=== PATIENT | male | born 1995 | race Caucasian/White ===

== ENCOUNTER 2018-01-24 20:48 | Inpatient (IN) | payer SELFPAY ==
[~2018-01-24] VITALS: Ht 184.2 cm; Wt 139.7 kg
[~2018-01-24 20:48] MED LIST: HYDR-1231 PO; METH4TAB PO; SULF1TAB35 PO
[2018-01-24] MEDS ORDERED: LIDOCAINE 1% INJ 20 ML 20 ML VIAL INJ ONE (21:30)
[2018-01-24] MEDS ORDERED: fentaNYL INJECTION 100 MCG/2 ML AMP IVP ONE ×2 (21:30→22:45)
[2018-01-24 21:41] LABS: BASOPHILS # (AUTO) 0.1 10^3/uL (0.0-0.1); BASOPHILS % (AUTO) 1 % (0-10); EOSINOPHILS # (AUTO) 0.3 10^3/uL (0.0-0.3); EOSINOPHILS % (AUTO) 3 % (0-10); HEMATOCRIT 44 % (40-54); HEMOGLOBIN 15.5 G/DL (13.3-17.7); LYMPHOCYTES # (AUTO) 2.8 X 10^3 (1.0-4.0); LYMPHOCYTES % (AUTO) 25 % (12-44); MEAN CORPUSCULAR HEMOGLOBIN 30 PG (25-34); MEAN CORPUSCULAR HGB CONC 36 G/DL (32-36); MEAN CORPUSCULAR VOLUME 85 FL (80-99); MONOCYTES # (AUTO) 1.3 X 10^3 (0.0-1.0); MONOCYTES % (AUTO) 12 % (0-12); NEUTROPHILS # (AUTO) 6.6 X 10^3 (1.8-7.8); NEUTROPHILS % (AUTO) 60 % (42-75); PLATELET COUNT 331 10^3/uL (130-400); RED BLOOD COUNT 5.12 10^6/uL (4.35-5.85); RED CELL DISTRIBUTION WIDTH 13.3 % (10.0-14.5)
--- NOTE | 2018-01-24 21:42 | ED Lower Extremity ---
General Stated Complaint: SPIDER BITE L LEG Source: patient Exam Limitations: no limitations History of Present Illness Date Seen by Provider: Jan 24, 2018 Time Seen by Provider: 21:15 Initial Comments Patient is a 22-year-old male who presents to the emergency room with complaints of a spider bite to the anterior aspect of his left evangelista. And an area of redness to the left inner ankle. He reports that this started 1 week ago today and it started out as what he thought was a mosquito bite that itched but had a black dot in the middle but became larger and more painful over the week. His left leg is swollen and has been causing him more pain with ambulation. He does report that he's been running a fever. He also reports that he was seen today at urgent care in [place], [place] and was given Bactrim reports that he accidently left it there. He also has multiple bug bites to his lower extremities bilaterally. These that I have described really only to that appeared to be infected. Onset: last week Pain/Injury Location: left leg, left ankle Method of Injury: other (insect bite) Modifying Factors: Improves With Immobilization; Worse With Movement Allergies and Home Medications Allergies Coded Allergies: No Known Drug Allergies (Unverified , 01/18/13) Home Medications Sulfamethoxazole/Trimethoprim 1 Each Tablet, 1 EACH PO BID Prescribed by: URSULA RODRIGUEZ on 01/26/18 1225 Patient Home Medication List Home Medication List Reviewed: Yes Constitutional: see HPI; No chills, No diaphoresis; fever EENTM: no symptoms reported; No ear discharge, No hearing loss Respiratory: see HPI; No cough, No dyspnea on exertion Cardiovascular: see HPI; No chest pain, No edema Gastrointestinal: see HPI; No abdominal pain, No constipation, No diarrhea Genitourinary: see HPI; No decreased output, No discharge Musculoskeletal: see HPI; No back pain, No gout Skin: see HPI, change in color, lesions, pruritus Psychiatric/Neurological: See HPI; Denies Anxiety, Denies Depressed All Other Systems Reviewed Negative Unless Noted: Yes Past Vxgzlaf-Jtashm-Lopwmp Hx Past Med/Social Hx: Reviewed Nursing Past Med/Soc Hx Patient Social History Type Used: Smokeless Tobacco Recent Foreign Travel: No Contact w/Someone Who Travel: No Recent Hopitalizations: No Immunizations Up To Date Tetanus Booster (TDap): Unknown Seasonal Allergies Seasonal Allergies: No Past Medical History Meningitis Reproductive Disorders: No Adverse Reaction/Blood Tranf: No Family Medical History Reviewed Nursing Family Hx Heart Disease, Cancer Physical Exam Vital Signs Vital Signs - First Documented 01/24/18 21:11 Temp 98.2 Pulse 116 Resp 22 B/P (MAP) 137/101 (113) Pulse Ox 98 O2 Delivery Room Air Capillary Refill : Height, Weight, BMI Height: 6', 0" Weight: 265lbs oz, 120.350341ar Method:Stated ,BMI General Appearance: WD/WN, no apparent distress HEENT: PERRL/EOMI, normal ENT inspection, TMs normal, pharynx normal Neck: non-tender, full range of motion, supple, normal inspection Cardiovascular: regular rate, rhythm, no edema, no gallop, no JVD, no murmur Respiratory: chest non-tender, lungs clear, normal breath sounds, no respiratory distress, no accessory muscle use Gastrointestinal: normal bowel sounds, non tender, soft, no organomegaly, no pulsatile mass Back: normal inspection, no CVA tenderness, no vertebral tenderness Legs: bilateral leg pain, bilateral leg soft tissue tenderness, bilateral leg swelling (the left calf is 52 cm in the left ankle is 15 cm. The right calf is 46 cm the left calf is 18 cm) Neurologic/Tendon: normal sensation, normal motor functions, normal tendon functions, responds to pain Neurologic/Psychiatric: alert, normal mood/affect, oriented x 3, abnormal cerebellar tests Skin: other (see the pictures attached. The patient has 2 large areas of cellulitis the first one to his left evangelista measures 5 x 8" and his erythematous and has a central lesion that is black and mendez in color and is draining a mendez purulent drainage. The one on his left inner ankle 2 x 2 and erythematous.) Lymphatic: no adenopathy Progress/Results/Core Measures Results/Orders Lab Results Laboratory Tests Test 01/24/18 21:32 Range/Units White Blood Count 11.0 4.3-11.0 10^3/uL Red Blood Count 5.12 4.35-5.85 10^6/uL Hemoglobin 15.5 13.3-17.7 G/DL Hematocrit 44 40-54 % Mean Corpuscular Volume 85 80-99 FL Mean Corpuscular Hemoglobin 30 25-34 PG Mean Corpuscular Hemoglobin Concent 36 32-36 G/DL Red Cell Distribution Width 13.3 10.0-14.5 % Platelet Count 331 130-400 10^3/uL Mean Platelet Volume 11.0 H 7.4-10.4 FL Neutrophils (%) (Auto) 60 42-75 % Lymphocytes (%) (Auto) 25 12-44 % Monocytes (%) (Auto) 12 0-12 % Eosinophils (%) (Auto) 3 0-10 % Basophils (%) (Auto) 1 0-10 % Neutrophils # (Auto) 6.6 1.8-7.8 X 10^3 Lymphocytes # (Auto) 2.8 1.0-4.0 X 10^3 Monocytes # (Auto) 1.3 H 0.0-1.0 X 10^3 Eosinophils # (Auto) 0.3 0.0-0.3 10^3/uL Basophils # (Auto) 0.1 0.0-0.1 10^3/uL Sodium Level 137 135-145 MMOL/L Potassium Level 4.2 3.6-5.0 MMOL/L Chloride Level 101 98-107 MMOL/L Carbon Dioxide Level 24 21-32 MMOL/L Anion Gap 12 5-14 MMOL/L Blood Urea Nitrogen 13 7-18 MG/DL Creatinine 1.01 0.60-1.30 MG/DL Estimat Glomerular Filtration Rate > 60 BUN/Creatinine Ratio 13 Glucose Level 84 70-105 MG/DL Lactic Acid Level 1.35 0.50-2.00 MMOL/L Calcium Level 9.9 8.5-10.1 MG/DL Total Bilirubin 1.7 H 0.1-1.0 MG/DL Aspartate Amino Transf (AST/SGOT) 45 H 5-34 U/L Alanine Aminotransferase (ALT/SGPT) 94 H 0-55 U/L Alkaline Phosphatase 59 40-136 U/L Total Protein 8.7 H 6.4-8.2 GM/DL Albumin 4.7 H 3.2-4.5 GM/DL Micro Results Microbiology 01/24/18 Blood Culture - Preliminary, Resulted No growth 01/24/18 Blood Culture - Preliminary, Resulted No growth 01/24/18 Gram Stain - Final, Complete 01/24/18 Wound Culture - Final, Complete Staphylococcus aureus My Orders Orders - NIKOLAY SALAZAR Fentanyl Injection (Sublimaze Injection (01/24/18 21:30) Lidocaine 1% Inj 20 Ml (Xylocaine 1% Inj (01/24/18 21:30) Cbc With Automated Diff (01/24/18 21:24) Comprehensive Metabolic Panel (01/24/18 21:24) Lactic Acid Analyzer (01/24/18 21:24) Blood Culture (01/24/18 21:24) Saline Lock/Iv-Start (01/24/18 21:24) Ceftriaxone Injection (Rocephin Injectio (01/24/18 22:30) Wound Culture (01/24/18 22:38) Fentanyl Injection (Sublimaze Injection (01/24/18 22:45) Medications Given in ED Vital Signs/I&O 01/24/18 21:11 Temp 98.2 Pulse 116 Resp 22 B/P (MAP) 137/101 (113) Pulse Ox 98 O2 Delivery Room Air Departure Communication (Admissions) Time/Spoke to Admitting Phy: 22:[address] Ye and he agrees with plans of admission at this time. There are also be a consult to surgery in the morning. Impression Primary Impression: Cellulitis Qualified Codes: L03.116 - Cellulitis of left lower limb Disposition: ADMITTED INPATIENT Condition: Stable/Unchanged Admissions Decision to Admit Reason: Admit from ER (General) Decision to Admit/Date: Jan 24, 2018 Time/Decision to Admit Time: 22:51 Departure-Patient Inst. Referrals: NO,LOCAL PHYSICIAN (PCP/Family) Primary Care Physician Scripts Sulfamethoxazole/Trimethoprim (Bactrim Ds Tablet) 1 Each Tablet 1 EACH PO BID, #10 TAB Prov: URSULA RODRIGUEZ MD 01/26/18 Images Extremities-Lower 1 - Severe, Cellulitis, Edema, Swelling, Tenderness 1 - Mild, Cellulitis, Edema, Swelling, Tenderness Progress The area in the first picture is 8 x 5" on the evangelista. In the lower inner ankle is 2 x 2" NIKOLAY SALAZAR Jan 24, 2018 21:42
[2018-01-24 22:01] LABS: ALANINE AMINOTRANSFERASE 94 U/L (0-55); ALBUMIN 4.7 GM/DL (3.2-4.5); ALKALINE PHOSPHATASE 59 U/L (40-136); BILIRUBIN,TOTAL 1.7 MG/DL (0.1-1.0); BUN/CREATININE RATIO 13; CALCIUM 9.9 MG/DL (8.5-10.1); CARBON DIOXIDE 24 MMOL/L (21-32); CHLORIDE 101 MMOL/L (98-107); CREATININE SERUM 1.01 MG/DL (0.60-1.30); GFR ESTIMATED > 60; GLUCOSE 84 MG/DL (70-105); POTASSIUM 4.2 MMOL/L (3.6-5.0); SODIUM 137 MMOL/L (135-145); TOTAL PROTEIN 8.7 GM/DL (6.4-8.2)
[2018-01-24] MEDS ORDERED: cefTRIAXone INJECTION 1,000 MG in NS (IVPB) 50 ML IV ONE (22:30)
[2018-01-24] MEDS ORDERED: fentaNYL INJECTION 100 MCG/2 ML AMP IV PRN (23:30)
[2018-01-24] MEDS ORDERED: VANCOMYCIN 1 GM/NS 250 ML IVPB IV ONE ×2 (23:30)
[2018-01-24] MEDS ORDERED: CATHETER FLUSH 10 ML SYR IV PRN (23:30)
[2018-01-25 03:45] VITALS: BP 124/62
[2018-01-25 06:16] LABS: BASOPHILS % (AUTO) 0 % (0-10); EOSINOPHILS # (AUTO) 0.3 10^3/uL (0.0-0.3); EOSINOPHILS % (AUTO) 3 % (0-10); HEMATOCRIT 41 % (40-54); HEMOGLOBIN 14.1 G/DL (13.3-17.7); LYMPHOCYTES # (AUTO) 2.4 X 10^3 (1.0-4.0); LYMPHOCYTES % (AUTO) 25 % (12-44); MEAN CORPUSCULAR HEMOGLOBIN 30 PG (25-34); MEAN CORPUSCULAR HGB CONC 35 G/DL (32-36); MEAN CORPUSCULAR VOLUME 86 FL (80-99); MONOCYTES # (AUTO) 1.1 X 10^3 (0.0-1.0); MONOCYTES % (AUTO) 12 % (0-12); NEUTROPHILS # (AUTO) 5.8 X 10^3 (1.8-7.8); NEUTROPHILS % (AUTO) 60 % (42-75); PLATELET COUNT 282 10^3/uL (130-400); RED BLOOD COUNT 4.73 10^6/uL (4.35-5.85); RED CELL DISTRIBUTION WIDTH 13.3 % (10.0-14.5); WHITE BLOOD COUNT 9.6 10^3/uL (4.3-11.0)
[2018-01-25] MEDS: CATHETER FLUSH 10 ML SYR IV SCH ×3 (06:23→21:09)
[2018-01-25 06:30] LABS: ALANINE AMINOTRANSFERASE 73 U/L (0-55); ALBUMIN 3.8 GM/DL (3.2-4.5); ALKALINE PHOSPHATASE 51 U/L (40-136); BILIRUBIN,TOTAL 1.6 MG/DL (0.1-1.0); BUN/CREATININE RATIO 17; CALCIUM 9.2 MG/DL (8.5-10.1); CARBON DIOXIDE 23 MMOL/L (21-32); CHLORIDE 106 MMOL/L (98-107); CREATININE SERUM 0.83 MG/DL (0.60-1.30); GFR ESTIMATED > 60; GLUCOSE 106 MG/DL (70-105); POTASSIUM 3.8 MMOL/L (3.6-5.0); SODIUM 137 MMOL/L (135-145); TOTAL PROTEIN 6.6 GM/DL (6.4-8.2)
[2018-01-25 08:00] VITALS: BP 127/65
[2018-01-25] MEDS: VANCOMYCIN 1,750 MG/NS 500 ML IVPB IV SCH ×6 (08:41→23:31)
--- NOTE | 2018-01-25 10:46 | History & Physical-Hospitalist ---
History of Present Illness HPI/Chief Complaint Pt is a 22yoCM who no known past medical history who presented to the ER with a CC of leg pain and swelling. He believes he was bitten by a spider on 01/17 though he did not see the spider. He was seen by a a physician at an urgent care in [place], [place] yesterday and was prescribed an antibiotic. He took one pill but did not remember to take the prescription with him when he left [place]. Last night he developed a fever and his pain worsened so that he could not walk on it prompting him to seek evaluation in the ER where he was found to have a large erythematous area with a central wound on his left lower extremity. Source: patient Date Seen 01/25/18 Time Seen by Provider: 10:46 Attending Physician Dwayne Ye MD PCP No,Local Physician Referring Physician Date of Admission Jan 24, 2018 at 10:45 pm Home Medications & Allergies Home Medications Reviewed patient Home Medication Reconciliation performed by pharmacy medication reconciliations teletype technician and/or nursing. Patients Allergies have been reviewed. Allergies Allergies Coded Allergies No Known Drug Allergies (Unverified01/18/13) Past Yirvnbb-Cgkeno-Zkrsaw Hx Past Med/Social Hx: Reviewed Nursing Past Med/Soc Hx Patient Social History Alcohol Use: Occasionally Uses Number of Drinks Today: 0 Alcohol Beverage of Choice: Beer Recreational Drug Use: No Smoking Status: Former Smoker Type Used: Smokeless Tobacco 2nd Hand Smoke Exposure: No Physical Abuse Screen: No Sexual Abuse: No Recent Foreign Travel: No Contact w/other who traveled: No Recent Hopitalizations: No Recent Infectious Disease Expo: No Immunizations Up To Date Tetanus Booster (TDap): Unknown Pediatric: Yes Seasonal Allergies Seasonal Allergies: No Past Medical History Neurological: Meningitis Reproductive: No History of Blood Disorders: No Adverse Reaction to Blood [place]: No Family History Reviewed Nursing Family Hx Patient reports no known family medical history. Heart Disease, Cancer Review of Systems Constitutional: No chills; fever EENTM: No blurred vision, No double vision, No nose congestion, No throat pain Respiratory: No cough, No dyspnea on exertion, No short of breath Cardiovascular: No chest pain, No edema, No palpitations Gastrointestinal: No abdominal pain, No constipation, No diarrhea, No nausea, No vomiting Genitourinary: No dysuria, No frequency Musculoskeletal: see HPI; No joint pain, No muscle pain Skin: No lesions, No rash Psychiatric/Neurological: Denies Headache, Denies Numbness, Denies Tingling Physical Exam Physical Exam Vital Signs Vital Signs - First Documented 01/24/18 21:11 Temp 98.2 Pulse 116 Resp 22 B/P (MAP) 137/101 (113) Pulse Ox 98 O2 Delivery Room Air Capillary Refill : Less Than 3 Seconds Height, Weight, BMI Height: 6'0.50" Weight: 308lbs.0.0oz.139.821323gm; 41.2 BMI Method:Stated General Appearance: No Apparent Distress, WD/WN HEENT: PERRL/EOMI, Moist Mucous Membranes Neck: Non Tender, Supple Respiratory: Lungs Clear, No Respiratory Distress Cardiovascular: Regular Rate, Rhythm, No Murmur Gastrointestinal: Normal Bowel Sounds, Non Tender, Soft Extremity: Normal Capillary Refill, No Calf Tenderness, Other (left leg with area of erythema and central wound on anterior aspect of evangelista, small erythematous area on posterior aspect of ankle) Neurologic/Psychiatric: Alert, Oriented x3, Normal Mood/Affect Skin: Normal Color, Warm/Dry Results Results/Procedures Labs Laboratory Tests 01/24/18 21:32 01/25/18 05:06 Patient resulted labs reviewed. Assessment/Plan Admission Diagnosis Cellulitis Admission Status: Inpatient Order (span 2 midnights) Reason for Inpatient Admission: failed outpatient abx Diagnosis/Problems Diagnosis/Problems (1) Cellulitis Status: Acute Assessment & Plan: Continue on abx surgery consulted, appreciate recs Await cultures Qualifiers: Site of cellulitis: extremity Site of cellulitis of extremity: lower extremity Laterality: left Qualified Codes: L03.116 - Cellulitis of left lower limb Clinical Quality Measures DVT/VTE Risk/Contraindication: Risk Factor Score Per Nursin RFS Level Per Nursing on Admit: 2=Moderate URSULA RODRIGUEZ MD Jan 25, 2018 10:46
[2018-01-25] MEDS: cefTRIAXone 1 GM/NS 50 ML IVPB IV SCH ×4 (11:35→21:05)
[2018-01-25 11:56] VITALS: BP 129/74
[2018-01-25 15:35] VITALS: BP 124/60
[2018-01-25 19:50] VITALS: BP 116/75
--- NOTE | 2018-01-25 23:20 | Consultation ---
History of Present Illness History of Present Illness Patient Consulted On(lor/time) 01/25/18 23:11 Date Seen by Provider: Jan 25, 2018 Time Seen by Provider: 08:26 History of Present Illness Consult requested by Dr. Calix for cellulitis left lower extremity. Patient is a 22 year old male who has a cellulitis to left lower extremity. It started as two small dark hernadez and states that is continue to worsen. He began having increasing pain and was seen at an urgent care but only took one antibiotic and then had continue worsening so went to emergency dept for further evaluation. He has pain, swelling in the left lower extremity. Pain worsens when touched. It did have a small amount drainage but none currently. Currently denies n/v fever sweats chills shortness of breath or chest pain. Allergies and Home Medications Allergies Coded Allergies: No Known Drug Allergies (Unverified , 01/18/13) Home Medications No Active Prescriptions or Reported Meds Patient Home Medication List Home Medication List Reviewed: Yes Past Whnfolr-Jcdjmt-Sskjym Hx Patient Social History Alcohol Use: Occasionally Uses Number of Drinks Today: 0 Recreational Drug Use: No Smoking Status: Former Smoker Type Used: Smokeless Tobacco 2nd Hand Smoke Exposure: No Recent Foreign Travel: No Contact w/Someone Who Travel: No Recent Infectious Disease Expo: No Recent Hopitalizations: No Physical Abuse Screen: No Sexual Abuse: No Immunizations Up To Date Tetanus Booster (TDap): Unknown PED Vaccines UTD: Yes Seasonal Allergies Seasonal Allergies: No Surgeries History of Surgeries: No Respiratory History of Respiratory Disorde: No Cardiovascular History of Cardiac Disorders: No Neurological History of Neurological Disord: No Neurological Disorders: Meningitis Reproductive System Hx Reproductive Disorders: No Genitourinary History of Genitourinary Disor: No Gastrointestinal History of Gastrointestinal Di: No Musculoskeletal History of Musculoskeletal Dis: No Endocrine History of Endocrine Disorders: No HEENT History of HEENT Disorders: No Cancer History of Cancer: No Psychosocial History of Psychiatric Problem: No Integumentary History of Skin or Integumenta: No Blood Transfusions History of Blood Disorders: No Adverse Reaction to a Blood Tr: No Family Medical History Significant Family History: Heart Disease, Cancer Family Medial History: Patient reports no known family medical history. Review of Systems-General Constitutional: no symptoms reported EENTM: no symptoms reported Respiratory: no symptoms reported Cardiovascular: no symptoms reported Gastrointestinal: no symptoms reported Genitourinary: no symptoms reported Musculoskeletal: see HPI Skin: see HPI Psychiatric/Neurological: No Symptoms Reported Physical Exam-General Problems Physical Exam Vital Signs Vital Signs - First Documented 01/24/18 21:11 Temp 98.2 Pulse 116 Resp 22 B/P (MAP) 137/101 (113) Pulse Ox 98 O2 Delivery Room Air Capillary Refill : Less Than 3 Seconds General Appearance: WD/WN, no apparent distress HEENT: PERRL/EOMI, normal ENT inspection Neck: supple Respiratory: no respiratory distress, no accessory muscle use Cardiovascular: regular rate, rhythm Gastrointestinal: non tender, soft Rectal: deferred Back: normal inspection Extremities: other (left lower extremity cellulitis with a 3x1 cm area raised purulent/necrotic central portion) Neurologic/Psychiatric: alert, normal mood/affect, oriented x 3 Skin: warm/dry (eerythematous changes left lower extremity with changes noted above) Lymphatic: no adenopathy Data Review Labs Laboratory Tests 01/25/18 05:06: White Blood Count 9.6, Red Blood Count 4.73, Hemoglobin 14.1, Hematocrit 41, Mean Corpuscular Volume 86, Mean Corpuscular Hemoglobin 30, Mean Corpuscular Hemoglobin Concent 35, Red Cell Distribution Width 13.3, Platelet Count 282, Mean Platelet Volume 11.0H, Neutrophils (%) (Auto) 60, Lymphocytes (%) (Auto) 25 , Monocytes (%) (Auto) 12, Eosinophils (%) (Auto) 3, Basophils (%) (Auto) 0, Neutrophils # (Auto) 5.8, Lymphocytes # (Auto) 2.4, Monocytes # (Auto) 1.1H, Eosinophils # (Auto) 0.3, Basophils # (Auto) 0.0, Sodium Level 137, Potassium Level 3.8, Chloride Level 106, Carbon Dioxide Level 23, Anion Gap 8, Blood Urea Nitrogen 14, Creatinine 0.83, Estimat Glomerular Filtration Rate > 60, BUN/ Creatinine Ratio 17, Glucose Level 106H, Calcium Level 9.2, Total Bilirubin 1.6H , Aspartate Amino Transf (AST/SGOT) 32, Alanine Aminotransferase (ALT/SGPT) 73H , Alkaline Phosphatase 51, Total Protein 6.6, Albumin 3.8 Microbiology 01/24/18 Blood Culture - Preliminary, Resulted No growth 01/24/18 Gram Stain - Final, Resulted 01/24/18 Wound Culture - Preliminary, Resulted Staphylococcus species Assessment/Plan Assessment/Plan Assessment/Plan cellulitis of left lower extremity possibly secondary to spider bite, there is some central necrotic tissue with purulent material discussed patient need to debride the tissue and continue medical management would consider adding dapsone may need further debridement continue to monitor closely Procedure: patient was prepped in sterile fashion using sharp 11 blade scalpel the purulent necrotic tissue was debrided sharply measuring 3x1cm. Partial thickness of skin removed and culture obtained. Area was washed and dried and sterile bandage applied. Clinical Quality Measures DVT/VTE Risk/Contraindication: Risk Factor Score Per Nursin RFS Level Per Nursing on Admit: 2=Moderate AGUILAR JONES DO Jan 25, 2018 23:20
[2018-01-26] VITALS: BP 127/61
[2018-01-26 04:06] VITALS: BP 107/55
[2018-01-26] MEDS ORDERED: TROUGH ORDER-PHARMACY XX ONE (06:00)
[2018-01-26] MEDS: CATHETER FLUSH 10 ML SYR IV SCH ×2 (06:56→14:23)
[2018-01-26] MEDS: VANCOMYCIN 1,750 MG/NS 500 ML IVPB IV SCH ×2 (06:56)
[2018-01-26 08:00] VITALS: BP 118/75
[2018-01-26] MEDS: cefTRIAXone 1 GM/NS 50 ML IVPB IV SCH ×2 (09:07)
--- NOTE | 2018-01-26 11:31 | Discharge Summary-Hospitalist ---
Diagnosis/Chief Complaint Date of Admission Jan 24, 2018 at 10:45 pm Date of Discharge Discharge Date: Jan 26, 2018 Admission Diagnosis Cellulitis Discharge Diagnosis (1) Cellulitis Status: Acute Assessment & Plan: On Vanc and Rocephin surgery consulted, appreciate recs Cultures growing staph- will complete antibiotics as an outpatient Discharge Summary Procedures/Consulations Gen Surgery- Dr Haley Discharge Physical Exam Allergies: Coded Allergies: No Known Drug Allergies (Unverified , 01/18/13) Vitals & I&Os Vital Signs Date Time Temp Pulse Resp B/P (MAP) Pulse Ox O2 Delivery O2 Flow Rate FiO2 01/26/18 16:30 01/26/18 08:00 97.6 79 18 98 Room Air General Appearance: Alert, Oriented X3 Hospital Course Pt is a 22yoCM who presented to the ER due to leg swelling and pain and was found to have cellulitis. He was admitted for IV abx as he had failed outpatient abx treatment. He underwent bedside debridement with Dr Haley and his symptoms improved. Cultures revealed MSSA and he was discharge home on Bactrim per sensitivities. He was discharged home in stable condition. I advised him to establish care with a PCP to follow up this hospital stay. Labs (last 24 hrs) Microbiology 01/24/18 Blood Culture - Preliminary, Resulted No growth 01/25/18 Gram Stain - Final, Resulted 01/25/18 Wound Culture - Preliminary, Resulted Staphylococcus aureus Patient resulted labs reviewed. Pending Labs Discussion & Recommendations Discharge Planning: <30 minutes discharge planning Discharge Home Medications: Active Scripts Active Bactrim Ds Tablet (Sulfamethoxazole/Trimethoprim) 1 Each Tablet 1 Each PO BID Instructions to patient/family Please see electronic discharge instructions given to patient. Clinical Quality Measures DVT/VTE Risk/Contraindication: Risk Factor Score Per Nursin RFS Level Per Nursing on Admit: 2=Moderate Problem Qualifiers (1) Cellulitis: Site of cellulitis: extremity Site of cellulitis of extremity: lower extremity Laterality: left Qualified Codes: L03.116 - Cellulitis of left lower limb URSULA RODRIGUZE MD Jan 26, 2018 11:31
[2018-01-26] MEDS ORDERED: SULF1TAB35 PO (12:25)
--- NOTE | 2018-01-26 12:27 | Discharge Inst-Simple/Standard ---
Discharge Inst-Standard Discharge Medications New, Converted or Re-Newed RX: Transmitted to Pharmacy Patient Instructions/Follow Up Plan of Care/Instructions/FU: Please continue to take your medications as written. Please follow up with [facility] to follow up this hospital stay and establish care. Activity as Tolerated: Yes Discharge Diet: No Restrictions Return to The Hospital For: Fever, worsening pain or redness, if you feel you are getting worse. URSULA RODRIGUEZ MD Jan 26, 2018 12:27
[2018-01-26] MEDS ORDERED: VANCOMYCIN 1250 MG/NS 250 ML IVPB IV SCH ×2 (14:00)
--- NOTE | 2018-01-26 15:53 | Progress Note ---
Subjective Date Seen by Provider: Jan 26, 2018 Time Seen by Provider: 08:32 Subjective/Events-last exam patient feeling better. less pain. redness decreasing and swelling down. Denies n/v fever sweats chills shortness of breath or chest pain. Focused Exam Lactate Level 01/24/18 21:32: Lactic Acid Level 1.35 Objective Exam Vital Signs Date Time Temp Pulse Resp B/P (MAP) Pulse Ox O2 Delivery O2 Flow Rate FiO2 01/26/18 08:00 97.6 79 18 118/75 (89) 98 Room Air 01/26/18 04:06 98.4 78 16 107/55 (72) 92 Room Air 01/26/18 00:00 98.2 90 18 127/61 (83) 92 Room Air 01/25/18 19:50 98.3 86 18 116/75 (89) 97 Room Air I & O 01/26/18 07:00 Intake Total 2695.0 ml Balance 2695.0 ml Capillary Refill : Less Than 3 Seconds General Appearance: No Apparent Distress, WD/WN HEENT: PERRL/EOMI, Moist Mucous Membranes Neck: Non Tender, Supple Respiratory: Lungs Clear, No Respiratory Distress Cardiovascular: Regular Rate, Rhythm, No Murmur Gastrointestinal: non tender, soft Extremity: Normal Capillary Refill, No Calf Tenderness, Other (left leg with area of erythema and central wound on anterior aspect of evangelista improving) Neurologic/Psychiatric: Alert, Oriented x3, Normal Mood/Affect Skin: Normal Color, Warm/Dry Lymphatic: No Adenopathy Results Lab Laboratory Tests 01/26/18 06:10: Vancomycin Level Trough 23.4H Microbiology 01/24/18 Blood Culture - Preliminary, Resulted No growth 01/25/18 Gram Stain - Final, Resulted 01/25/18 Wound Culture - Preliminary, Resulted Staphylococcus aureus Assessment/Plan Assessment/Plan Assessment/Plan cellulitis of left lower extremity possibly secondary to spider bite, there is some central necrotic tissue with purulent material may need further debridement continue to monitor closely but could be as outpatient follow up 1 week if worsens be seen at that time. Clinical Quality Measures DVT/VTE Risk/Contraindication: Risk Factor Score Per Nursin RFS Level Per Nursing on Admit: 2=Moderate AGUILAR JONES DO Jan 26, 2018 15:53
[2018-01-27] MEDS ORDERED: TROUGH ORDER-PHARMACY XX ONE (13:00)
--- NOTE | 2018-01-31 10:54 | Physician Query Clarification ---
PQ-Debridement Admission/Discharge Admission Date: Jan 24, 2018 at 22:45 Discharge Date: Jan 26, 2018 at 16:30 PHYSICIAN RESPONSE QUESTION: Please clarify the depth of the debridement. Please clarify if the debridement was excisional or non-excisional. PQ Debridement : Date of debridement: Jan 25, 2018 Level: Skin Type: Other-Explanation below Explanation clinically finding sharp debridement In responding to this query, please exercise your independent professional judgment. The purpose of this communication is to more accurately reflect the complexity of your patients condition. The fact that a question is asked does not imply that any particular answer is desired or expected. Thank you for your timely response to this clarification. Requestors name: Gregory THIS PHYSICIAN QUERY FORM IS A PERMANENT PART OF THE MEDICAL RECORD GREGORY SORENSON Jan 31, 2018 10:54 AGUILAR JONES DO Jan 31, 2018 16:45
--- NOTE | 2018-02-01 08:28 | Physician Query Clarification ---
PQ-Debridement Admission/Discharge Admission Date: Jan 24, 2018 at 22:45 Discharge Date: Jan 26, 2018 at 16:30 PHYSICIAN RESPONSE QUESTION: Please clarify the depth of the debridement. Please clarify if the debridement was excisional or non-excisional. I must have the debridement stated as either excisional or non-excisional. Sharp debridement doesn't clarify if it is excisional or non-excisional. PQ Debridement : Date of debridement: Jan 25, 2018 Level: Skin Type: Excisional In responding to this query, please exercise your independent professional judgment. The purpose of this communication is to more accurately reflect the complexity of your patients condition. The fact that a question is asked does not imply that any particular answer is desired or expected. Thank you for your timely response to this clarification. Requestors name: Gregory THIS PHYSICIAN QUERY FORM IS A PERMANENT PART OF THE MEDICAL RECORD GREGORY SORENSON Feb 01, 2018 08:28 AGUILAR JONES DO Feb 01, 2018 10:17
== END 2018-01-26 16:30 | disposition home or self-care (01) | DRG 918 ==
LOC: EDUNIT# 20:48 → ER 20:51 → 4TH 22:45
PROVIDERS: ADMIT Internal Medicine; ATTEND Internal Medicine
PROC: 0HBLXZZ Excision of Left Lower Leg Skin, External Approach (ICD-10-PCS; principal; 2018-01-25)
DX: T63.301A Toxic effect of unspecified spider venom, accidental (unintentional), initial encounter (principal); S90.562A Insect bite (nonvenomous), left ankle, initial encounter; L03.116 Cellulitis of left lower limb; Z72.0 Tobacco use; A49.01 Methicillin susceptible Staphylococcus aureus infection, unspecified site
CPT/HCPCS: 36415; 80053; 80202; 83605; 85025; 87040; 87070; 87077; 87186; 87205; 96365; 96375; 96376

== ENCOUNTER 2018-04-22 14:36 | Emergency (ER) | payer SELFPAY ==
[~2018-04-22] VITALS: Ht 184.2 cm; Wt 136.1 kg
--- NOTE | 2018-04-22 14:49 | ED Integumentary General ---
General Stated Complaint: FACIAL SWELLING Source: patient Exam Limitations: no limitations History of Present Illness Date Seen by Provider: Apr 22, 2018 Time Seen by Provider: 14:46 Initial Comments Patient is a 22-year-old male who presents to the emergency room with complaints of left-sided facial swelling, hives on his neck and chest. He reports that the swelling started last night and was on both sides the face but he went to bed and when he woke up this morning almost swelling and subtle to the left side of his face. 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 He denies shortness of breath, tongue or throat swelling. Timing/Duration: yesterday Location: face Possible Cause: no cause identified Associated Symptoms: swelling/mass/lumps Allergies and Home Medications Allergies Coded Allergies: No Known Drug Allergies (Unverified , 04/22/18) Home Medications Sulfamethoxazole/Trimethoprim 1 Each Tablet, 1 EACH PO BID Prescribed by: URSULA RODRIGUEZ on 01/26/18 1225 Patient Home Medication List Home Medication List Reviewed: Yes Review of Systems Review of Systems Constitutional: see HPI; No chills, No fever Past Pywomco-Dkrtcz-Brvddz Hx Patient Social History Alcohol Beverage of Choice: Beer Type Used: Smokeless Tobacco 2nd Hand Smoke Exposure: No Recent Foreign Travel: No Contact w/Someone Who Travel: No Recent Hopitalizations: No Immunizations Up To Date Tetanus Booster (TDap): Unknown PED Vaccines UTD: Yes Seasonal Allergies Seasonal Allergies: No Past Medical History Surgeries: No Respiratory: No Cardiac: No Neurological: No Meningitis Reproductive Disorders: No Genitourinary: No Gastrointestinal: No Musculoskeletal: No Endocrine: No HEENT: No Cancer: No Psychosocial: No Integumentary: No Blood Disorders: No Adverse Reaction/Blood Tranf: No Family Medical History Patient reports no known family medical history. Heart Disease, Cancer Physical Exam Vital Signs Vital Signs - First Documented 04/22/18 14:40 Temp 97.6 Pulse 86 Resp 16 B/P (MAP) 140/97 (111) Pulse Ox 98 Capillary Refill : Progress/Results/Core Measures Results/Orders My Orders Orders - NIKOLAY SALAZAR Diphenhydramine Injection (Benadryl Inje (04/22/18 15:00) Famotidine Tablet (Pepcid Tablet) (04/22/18 15:00) Triamcinolone Acetonide Im (Kenalog-40) (04/22/18 15:00) Medications Given in ED Current Medications Medications Dose Ordered Sig/Fidel Route Start Time Stop Time Status Last Admin Dose Admin Diphenhydramine HCl 50 mg ONCE ONCE IM 04/22/18 15:00 04/22/18 15:01 DC 04/22/18 15:01 50 MG Famotidine 20 mg ONCE ONCE PO 04/22/18 15:00 04/22/18 15:01 DC 04/22/18 15:02 20 MG Triamcinolone Acetonide 40 mg ONCE ONCE IM 04/22/18 15:00 04/22/18 15:01 DC 04/22/18 15:01 40 MG Vital Signs/I&O 04/22/18 14:40 Temp 97.6 Pulse 86 Resp 16 B/P (MAP) 140/97 (111) Pulse Ox 98 Departure Impression Primary Impression: Allergic reaction Disposition: 01 HOME, SELF-CARE Condition: Stable/Unchanged Departure-Patient Inst. Decision time for Depature: 15:27 Referrals: NO,LOCAL PHYSICIAN (PCP) Primary Care Physician Patient Instructions: Seasonal Allergies (DC) Add. Discharge Instructions: You may continue to use Benadryl and your ryhb-kbh-heogrnk allergy medications as directed. Follow-up with a primary care provider within 1 week for recheck. Return back to the emergency room for any worsening symptoms or concerns as needed. NIKOLAY SALAZAR Apr 22, 2018 14:49
[2018-04-22] MEDS ORDERED: diphenhydrAMINE 50 MG/ML INJ (BENADRYL) IM ONE (15:00)
[2018-04-22] MEDS ORDERED: TRIAMCINOLONE ACET (KENALOG-40) 40 MG/ML 1 ML VIAL IM ONE (15:00)
[2018-04-22] MEDS ORDERED: FAMOTIDINE 20 MG (PEPCID) TABLET PO ONE (15:00)
--- OUTSIDE RECORDS SUMMARY | 2018-04-22 15:21 | XMS REPORT | CCD ---
Author Author ANDREY WHATLEY Organization Unknown Address [address] [facility] [address] [place], [place] [id number] Care Team Providers Care Lighting Technician Name Role Phone MALGORZATA KIM MD Attphys MALGORZATA KIM MD Prisurg Vital Signs Unknown or Not Available. Allergies Allergy Code Allergy Type Reaction Status No Known Drug Allergies 0 No known drug allergies Active Procedures Procedure Code Procedure Type Date BASIC METABOLIC PANEL 793113201 SNOMED CT 06/25/2015 History of Immunizations Immunization Code Date MMR 03 11/23/1996 MMR 03 06/07/2000 Hep B, adolescent or pediatric 08 1995 Hep B, adolescent or pediatric 08 1995 Hep B, adolescent or pediatric 08 06/08/1996 Hep B, adolescent or pediatric 08 11/12/1999 Hep B, adolescent or pediatric 08 12/10/1999 IPV 10 1995 IPV 10 03/08/1996 IPV 10 06/08/1996 IPV 10 06/07/2000 Hib, unspecified formulation 17 1995 Hib, unspecified formulation 17 03/08/1996 Hib, unspecified formulation 17 06/08/1996 Hib, unspecified formulation 17 02/28/1998 DTaP 20 1995 DTaP 20 03/08/1996 DTaP 20 06/08/1996 DTaP 20 02/28/1998 DTaP 20 06/07/2000 DTaP 20 03/03/2010 varicella 21 11/23/1996 varicella 21 03/03/2010 Hep A, ped/adol, 2 dose 83 11/12/1999 Hep A, ped/adol, 2 dose 83 06/07/2000 Hep A, ped/adol, 2 dose 83 03/17/2006 Problems Unknown or Not Available. Results BASIC METABOLIC PANEL - Collect Date/Time: 06/25/2015 22:55 Test Name Code Test Result Test Units Test Ref Range GLUCOSE 2345-7 72 MG/DL L=70 H=100 SODIUM 2951-2 141 MEQ/L L=135 H=148 POTASSIUM 2823-3 3.6 MEQ/L L=3.5 H=5.3 CHLORIDE 2075-0 106 MEQ/L L=96 H=110 CO2 2028-9 25 MEQ/L L=22 H=29 BUN 3094-0 13 MG/DL L=8 H=22 CREATININE 2160-0 1.0 MG/DL L=0.6 H=1.6 CALCIUM 51780-0 9.6 MG/DL L=8.2 H=10.6 AGE 19 yrs GFR NonAA 96 GFR AA 116 eGFR >60 N/A eGFR AA* >60 N/A Active Medications Unknown or Not Available. Medications Administered During Visit Unknown or Not Available. Encounters Encounter Diagnosis Diagnosis Code Start Date Infectious gastroenteritis [id number] 06/25/2015 Social History Smoking Status Code Start Date End Date Never smoker [id number] Patient Decision Aids Unknown or Not Available. Discharge Instructions You were admitted to [facility] on 06/25/2015 with a principal diagnosis of Infectious gastroenteritis . You were discharged from [facility] on 06/25/2015. Should you have any questions prior to discharge, please contact a member of your healthcare team. If you have left the hospital and have any questions, please contact your primary care physician. Chief Complaint and Reason For Visit Chief Complaint Date of Onset FEVER VOMITING Function Status Unknown or Not Available. Plan of Care Unknown or Not Available. Referral/Transition of Care Unknown or Not Available.
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
[2018-04-22 15:51] VITALS: BP 136/83
== END 2018-04-22 15:51 | disposition home or self-care (01) ==
LOC: EDUNIT# 14:36 → ER 14:38
DX: T78.40XA Allergy, unspecified, initial encounter (principal); R22.0 Localized swelling, mass and lump, head; Z82.49 Family history of ischemic heart disease and other diseases of the circulatory system
CPT/HCPCS: 99284

== ENCOUNTER 2019-04-02 16:53 | Emergency (ER) | payer SELFPAY ==
[~2019-04-02] VITALS: Ht 182.8 cm; Wt 120.4 kg
[2019-04-02] MEDS ORDERED: D-ME118S33 PO (17:23)
--- NOTE | 2019-04-02 17:24 | ED Cough/URI ---
General Chief Complaint: Cough/Cold/Flu Symptoms Stated Complaint: COUGH, FEVER, FATIGUE Nursing Triage Note: PT AMB TO TRIAGE WITH COMPLAINT OF COUGH, CONGESTION, SORE THROAT, AND FEVER. STATES STARTED OVER THE WEEKEND. Sepsis Screen: No Definite Risk Source: patient Exam Limitations: no limitations History of Present Illness Date Seen by Provider: Apr 02, 2019 Time Seen by Provider: 17:21 Initial Comments Productive cough runny nose sore throat fever to a maximum of 100.4 beginning on 03/29/19. Timing/Duration: week, getting worse Severity/Quality: productive cough Associated Symptoms: cough, fever/chills, nasal congestion, sore throat Allergies and Home Medications Allergies Coded Allergies: No Known Drug Allergies (Unverified , 04/22/18) Home Medications Sulfamethoxazole/Trimethoprim 1 Each Tablet, 1 EACH PO BID Prescribed by: URSULA RODRIGUEZ on 01/26/18 1225 Patient Home Medication List Home Medication List Reviewed: Yes Review of Systems Review of Systems Constitutional: see HPI, chills, fever EENTM: see HPI, nose congestion, throat pain Respiratory: see HPI, cough Cardiovascular: no symptoms reported Genitourinary: no symptoms reported Musculoskeletal: no symptoms reported Skin: no symptoms reported Psychiatric/Neurological: No Symptoms Reported Hematologic/Lymphatic: No Symptoms Reported Immunological/Allergic: no symptoms reported Past Rwwxfio-Svdhzm-Hvfgin Hx Patient Social History Alcohol Use: Occasionally Uses Number of Drinks Today: AA Alcohol Beverage of Choice: Beer Recreational Drug Use: No Smoking Status: Never a Smoker Type Used: Smokeless Tobacco 2nd Hand Smoke Exposure: No Recent Foreign Travel: No Contact w/Someone Who Travel: No Recent Infectious Disease Expo: No Recent Hopitalizations: No Physical Abuse: No Sexual Abuse: No Mistreated: No Fear: No Immunizations Up To Date Tetanus Booster (TDap): Unknown PED Vaccines UTD: Yes Seasonal Allergies Seasonal Allergies: No Past Medical History Surgeries: No Respiratory: No Cardiac: No Neurological: No Meningitis Reproductive Disorders: No Genitourinary: No Gastrointestinal: No Musculoskeletal: No Endocrine: No HEENT: No Cancer: No Psychosocial: No Integumentary: No Blood Disorders: No Adverse Reaction/Blood Tranf: No Family Medical History Patient reports no known family medical history. Heart Disease, Cancer Physical Exam Vital Signs - First Documented 04/02/19 17:00 Temp 37.6 Pulse 79 Resp 16 B/P (MAP) 138/96 (110) Pulse Ox 97 O2 Delivery Room Air Capillary Refill : Less Than 3 Seconds Height: 6'0.50" Weight: 300lbs. 0.0oz. [id number]; 36.00 BMI Method:Stated General Appearance: WD/WN, no apparent distress Eyes: Bilateral Eye Normal Inspection, Bilateral Eye PERRL, Bilateral Eye EOMI HEENT: PERRL/EOMI, normal ENT inspection, TMs normal, pharynx normal; No pharyngeal erythema, No tonsillar exudate Neck: non-tender, full range of motion; No lymphadenopathy (R), No lymphadenopathy (L) Respiratory: no respiratory distress, no accessory muscle use Cardiovascular: regular rate, rhythm, no murmur Gastrointestinal: normal bowel sounds, non tender, soft Neurologic/Psychiatric: alert, normal mood/affect, oriented x 3 Skin: normal color, warm/dry Progress/Results/Core Measures Suspected Sepsis Recent Fever Within 48 Hours: No Infection Criteria Present: None New/Unexplained Altered Menta: No Sepsis Screen: No Definite Risk SIRS Temperature: Pulse: 79 Respiratory Rate: 16 Blood Pressure 138 /96 Mean: 110 Results/Orders My Orders Orders - QUYNH STINSON APRN Influenza A And B Antigens (04/02/19 17:18) Chest 1 View, Ap/Pa Only (04/02/19 17:18) Vital Signs/I&O 04/02/19 04/02/19 17:00 17:00 Temp 37.6 Pulse 79 Resp 16 B/P (MAP) 138/96 (110) Pulse Ox 97 O2 Delivery Room Air Room Air Capillary Refill : Less Than 3 Seconds Blood Pressure Mean: 110 Departure Impression Primary Impression: Viral syndrome Disposition: 01 HOME, SELF-CARE Condition: Stable Departure-Patient Inst. Decision time for Depature: 17:23 Referrals: AURORA LUBIN DO (PCP/Family) Primary Care Physician Patient Instructions: Viral Syndrome (DC) Add. Discharge Instructions: 1. Return to ER for any concerns 2. Follow-up with her doctor next week 3. All discharge instructions reviewed with patient and/or family. Voiced understanding. Scripts D-Methorphan Hb/P-Epd HCl/Bpm (Bromfed Dm Cough Syrup) 118 Ml Syrup 5 ML PO Q4H PRN for CONGESTION for 7 Days, #120 ML Prov: QUYNH STINSON APRN 04/02/19 Work/School Note: Work Release Form Date Seen in the Emergency Department: Apr 02, 2019 Return to Work: Apr 05, 2019 QUYNH STINSON APRN Apr 02, 2019 17:23
[2019-04-02 17:53] VITALS: BP 138/96
--- NOTE | 2019-04-02 17:53 | Diagnostic Imaging Report ---
EXAMINATION: Chest radiograph, portable AP view. DATE: April 02, 2019 at 1743 hours. INDICATION: 23-year-old male, cough and fever. COMPARISON: March 08, 2016. FINDINGS: Heart size and mediastinal contours are unremarkable. There is no identified pneumothorax. There is no large pleural effusion. There is no identified focal airspace consolidation. IMPRESSION: No identified acute cardiopulmonary abnormality. Dictated by: Dictated on workstation # [id number]
== END 2019-04-02 17:53 | disposition home or self-care (01) ==
LOC: EDUNIT# 16:53 → ER 16:54
DX: B34.9 Viral infection, unspecified (principal)
CPT/HCPCS: 71045; 87804

== ENCOUNTER 2020-02-13 11:30 | Emergency (ER) | payer BC, OTHER ==
[~2020-02-13] VITALS: Ht 182.8 cm; Wt 142.4 kg
[~2020-02-13 11:30] MED LIST changes: +D-ME118S33 PO
--- NOTE | 2020-02-13 11:41 | ED Cough/URI ---
General Stated Complaint: COUGH;FEVER;HEADACHE History of Present Illness Date Seen by Provider: Feb 13, 2020 Time Seen by Provider: 11:41 Initial Comments 24-year-old male presents with fever, cough, headache, sore throat and generalized malaise and started 4 days ago. Patient presents because he just doesn't feel well. Patient has no known coronavirus contact. He denies any shortness of breath. Reports his fever got up to 101 home. He also reports some diarrhea. He denies any loss of taste or smell. Allergies and Home Medications Allergies Coded Allergies: sulfamethoxazole (Verified Allergy, Unknown, Rash, 02/13/20) "fever" trimethoprim (Verified Allergy, Unknown, Rash, 02/13/20) "fever" Home Medications D-Methorphan Hb/P-Epd HCl/Bpm 118 Ml Syrup, 5 ML PO Q4H PRN for CONGESTION Prescribed by: QUYNH STINSON on 04/02/19 1723 Sulfamethoxazole/Trimethoprim 1 Each Tablet, 1 EACH PO BID Prescribed by: URSULA RODRIGUEZ on 01/26/18 1225 Patient Home Medication List Home Medication List Reviewed: Yes Review of Systems Review of Systems Constitutional: chills, fever, malaise EENTM: throat pain Respiratory: cough; No short of breath, No wheezing Cardiovascular: No chest pain, No palpitations Gastrointestinal: No abdominal pain; diarrhea; No nausea, No vomiting Genitourinary: no symptoms reported Musculoskeletal: no symptoms reported Skin: no symptoms reported Psychiatric/Neurological: No Symptoms Reported Hematologic/Lymphatic: No Symptoms Reported Past Udkppua-Extwiv-Xcteam Hx Past Med/Social Hx: Reviewed Nursing Past Med/Soc Hx Patient Social History Alcohol Beverage of Choice: Beer Type Used: Smokeless Tobacco 2nd Hand Smoke Exposure: No Recent Hopitalizations: No Immunizations Up To Date Tetanus Booster (TDap): Unknown PED Vaccines UTD: Yes Seasonal Allergies Seasonal Allergies: No Past Medical History Surgeries: No Respiratory: No Cardiac: No Neurological: No Meningitis Reproductive Disorders: No Genitourinary: No Gastrointestinal: No Musculoskeletal: No Endocrine: No HEENT: No Cancer: No Psychosocial: No Integumentary: No Blood Disorders: No Adverse Reaction/Blood Tranf: No Family Medical History Patient reports no known family medical history. Heart Disease, Cancer Physical Exam Vital Signs - First Documented Capillary Refill : Height: 6'0.50" Weight: 300lbs. 0.0oz. 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, no motor/sensory deficits, alert, normal mood/affect, oriented x 3 Skin: normal color, warm/dry Progress/Results/Core Measures Suspected Sepsis SIRS Temperature: Pulse: Respiratory Rate: Laboratory Tests 02/13/20 11:55: White Blood Count 7.1 Blood Pressure / Mean: Laboratory Tests 02/13/20 11:55: Creatinine 0.82, Platelet Count 323, Total Bilirubin 1.1H Results/Orders Lab Results Laboratory Tests Test 02/13/20 11:55 02/13/20 12:00 Range/Units White Blood Count 7.1 4.3-11.0 10^3/uL Red Blood Count 5.51 4.35-5.85 10^6/uL Hemoglobin 16.0 13.3-17.7 G/DL Hematocrit 46 40-54 % Mean Corpuscular Volume 84 80-99 FL Mean Corpuscular Hemoglobin 29 25-34 PG Mean Corpuscular Hemoglobin Concent 35 32-36 G/DL Red Cell Distribution Width 12.9 10.0-14.5 % Platelet Count 323 130-400 10^3/uL Mean Platelet Volume 10.4 7.4-10.4 FL Neutrophils (%) (Auto) 59 42-75 % Lymphocytes (%) (Auto) 30 12-44 % Monocytes (%) (Auto) 6 0-12 % Eosinophils (%) (Auto) 5 0-10 % Basophils (%) (Auto) 1 0-10 % Neutrophils # (Auto) 4.2 1.8-7.8 X 10^3 Lymphocytes # (Auto) 2.1 1.0-4.0 X 10^3 Monocytes # (Auto) 0.5 0.0-1.0 X 10^3 Eosinophils # (Auto) 0.3 0.0-0.3 10^3/uL Basophils # (Auto) 0.0 0.0-0.1 10^3/uL Sodium Level 138 135-145 MMOL/L Potassium Level 4.0 3.6-5.0 MMOL/L Chloride Level 106 98-107 MMOL/L Carbon Dioxide Level 22 21-32 MMOL/L Anion Gap 10 5-14 MMOL/L Blood Urea Nitrogen 14 7-18 MG/DL Creatinine 0.82 0.60-1.30 MG/DL Estimat Glomerular Filtration Rate > 60 BUN/Creatinine Ratio 17 Glucose Level 96 70-105 MG/DL Calcium Level 9.1 8.5-10.1 MG/DL Corrected Calcium 8.8 8.5-10.1 MG/DL Total Bilirubin 1.1 H 0.1-1.0 MG/DL Aspartate Amino Transf (AST/SGOT) 37 H 5-34 U/L Alanine Aminotransferase (ALT/SGPT) 75 H 0-55 U/L Alkaline Phosphatase 60 40-136 U/L C-Reactive Protein High Sensitivity 0.75 H 0.00-0.50 MG/DL Total Protein 7.7 6.4-8.2 GM/DL Albumin 4.4 3.2-4.5 GM/DL My Orders Orders - MITZI ROMERO DO Cbc With Automated Diff (02/13/20 11:51) Comprehensive Metabolic Panel (02/13/20 11:51) Procalcitonin (Pct) (02/13/20 11:51) Hs C Reactive Protein (02/13/20 11:51) Chest 1 View, Ap/Pa Only (02/13/20 11:51) Coronavirus Sars-Cov-2 So 2018 (02/13/20 11:51) Vital Signs/I&O 02/13/20 02/13/20 11:40 11:40 Temp 36.7 Pulse 84 Resp 20 B/P (MAP) 135/94 (108) Pulse Ox 96 O2 Delivery Room Air Room Air Capillary Refill : Diagnostic Imaging Diagonstic Imaging: Xray Plain Films/CT/US/NM/MRI: chest Comments [facility], [place] NAME: VICENTE MOTA MED REC#: [id number] PT STATUS: REG ER : 1995 PHYSICIAN: MITZI ROMERO DO ADMIT DATE: 02/13/20/ER Draft Date of Exam:02/13/20 CHEST 1 VIEW, AP/PA ONLY HISTORY: Cough and fever and headache. COMPARISON: 04/02/2019. TECHNIQUE: Single frontal view of the chest. FINDINGS: Lung volumes are low. No focal consolidation is seen. Haziness at the left lung base is thought to be due to overlying soft tissues. No pleural effusion or pneumothorax is seen. Cardiac silhouette is normal in size. IMPRESSION: 1. Low lung volumes with no acute pulmonary abnormality seen. Departure Impression Primary Impression: Upper respiratory infection Qualified Codes: J06.9 - Acute upper respiratory infection, unspecified Disposition: HOME, SELF-CARE Condition: Stable Departure-Patient Inst. Referrals: AURORA LUBIN DO (PCP/Family) Primary Care Physician Patient Instructions: COVID19, Viral Upper Respiratory Infection, Adult (DC) Add. Discharge Instructions: Follow-up with your primary care provider as needed Work/School Note: Work Release Form Return to Work: Feb 27, 2020 Other Restrictions Listed Below: May return after symptom-free and 14 days or neg covid test MITZI ROMERO DO Feb 13, 2020 11:41
[2020-02-13 12:13] LABS: BASOPHILS % (AUTO) 1 % (0-10); EOSINOPHILS # (AUTO) 0.3 10^3/uL (0.0-0.3); EOSINOPHILS % (AUTO) 5 % (0-10); HEMATOCRIT 46 % (40-54); LYMPHOCYTES # (AUTO) 2.1 X 10^3 (1.0-4.0); LYMPHOCYTES % (AUTO) 30 % (12-44); MEAN CORPUSCULAR HEMOGLOBIN 29 PG (25-34); MEAN CORPUSCULAR HGB CONC 35 G/DL (32-36); MEAN CORPUSCULAR VOLUME 84 FL (80-99); MEAN PLATELET VOLUME 10.4 FL (7.4-10.4); MONOCYTES # (AUTO) 0.5 X 10^3 (0.0-1.0); MONOCYTES % (AUTO) 6 % (0-12); NEUTROPHILS # (AUTO) 4.2 X 10^3 (1.8-7.8); NEUTROPHILS % (AUTO) 59 % (42-75); PLATELET COUNT 323 10^3/uL (130-400); RED CELL DISTRIBUTION WIDTH 12.9 % (10.0-14.5); WHITE BLOOD COUNT 7.1 10^3/uL (4.3-11.0)
[2020-02-13 12:21] LABS: ALBUMIN 4.4 GM/DL (3.2-4.5); CHLORIDE 106 MMOL/L (98-107); SODIUM 138 MMOL/L (135-145)
[2020-02-13 12:22] LABS: CALCIUM 9.1 MG/DL (8.5-10.1)
[2020-02-13 12:24] LABS: GLUCOSE 96 MG/DL (70-105); TOTAL PROTEIN 7.7 GM/DL (6.4-8.2)
[2020-02-13 12:25] LABS: BILIRUBIN,TOTAL 1.1 MG/DL (0.1-1.0); CARBON DIOXIDE 22 MMOL/L (21-32)
[2020-02-13 12:27] LABS: ALKALINE PHOSPHATASE 60 U/L (40-136); CREATININE SERUM 0.82 MG/DL (0.60-1.30); GFR ESTIMATED > 60
[2020-02-13 12:28] LABS: BUN/CREATININE RATIO 17
[2020-02-13 12:30] LABS: ALANINE AMINOTRANSFERASE 75 U/L (0-55)
--- NOTE | 2020-02-13 12:45 | Diagnostic Imaging Report ---
HISTORY: Cough and fever and headache. COMPARISON: 04/02/2019. TECHNIQUE: Single frontal view of the chest. FINDINGS: Lung volumes are low. No focal consolidation is seen. Haziness at the left lung base is thought to be due to overlying soft tissues. No pleural effusion or pneumothorax is seen. Cardiac silhouette is normal in size. IMPRESSION: 1. Low lung volumes with no acute pulmonary abnormality seen. Dictated by: Dictated on workstation # [id number]
[2020-02-13 13:14] VITALS: BP 137/92
== END 2020-02-13 13:15 | disposition home or self-care (01) ==
LOC: EDUNIT# 11:30 → ER 11:32
DX: J06.9 Acute upper respiratory infection, unspecified (principal); Z20.828 Contact with and (suspected) exposure to other viral communicable diseases; Z88.2 Allergy status to sulfonamides; Z88.1 Allergy status to other antibiotic agents; Z82.49 Family history of ischemic heart disease and other diseases of the circulatory system
CPT/HCPCS: 71045; 80053; 84145; 85025; 86141; U0002; 36415; 87635

== ENCOUNTER 2023-04-03 17:42 | Emergency (ER) | payer BC ==
[~2023-04-03] VITALS: Ht 182 cm; Wt 136.0 kg
[~2023-04-03 17:42] MED LIST changes: -SULF1TAB35 PO; +SULF1TAB38 PO
[2023-04-03 17:43] VITALS: BP 148/89
[2023-04-03] MEDS ORDERED: fentaNYL INJECTION 100 MCG/2 ML VIAL IVP STA (17:54)
[2023-04-03] MEDS ORDERED: NS IV 1000 ML 1,000 ML IV STA (17:54)
--- NOTE | 2023-04-03 17:58 | ED Abdominal Pain ---
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 Source of Information: Patient Exam Limitations: No Limitations History of Present Illness Date Seen by Provider: Apr 03, 2023 Time Seen by Provider: 17:55 Initial Comments Patient is a 27-year-old male who presents ED with upper abdominal pain. Pain started 2 hours ago while sitting at home. States he ate about 3 hours prior. Pain is described as sharp without radiation. Rates pain 8 out of 10. Nausea with 2 episodes of vomiting. Denies any diarrhea. Denies history of similar type pain. Patient denies any chest pain, cough, shortness of breath, diarrhea, dysuria. No history of previous abdominal surgery. Denies taking anything at home for pain. No known cardiac history. Intermittent alcohol use. Denies excessive NSAID use. No known medical problems. Denies fever, chills, body aches, headache, dizziness, visual changes, dysuria, hematuria Allergies and Home Medications Allergies Coded Allergies: sulfamethoxazole (Verified Allergy, Unknown, Rash, 02/13/20) "fever" trimethoprim (Verified Allergy, Unknown, Rash, 02/13/20) "fever" Patient Home Medication List Home Medication List Reviewed: Yes Ondansetron (Ondansetron Odt) 4 Mg Tab.rapdis, 4 MG SL Q4H PRN for NA USEA/VOMITING Prescribed by: RHONDA BENITEZ on 04/03/231924 Pantoprazole Sodium (Protonix) 40 Mg Tablet.dr, 40 MG PO DAILY Prescribed by: RHONDA BENITEZ on 04/03/231924 Discontinued Medications D-Methorphan Hb/P-Epd HCl/Bpm (Bromfed Dm Cough Syrup) 118 Ml Syrup, 5 ML PO Q4H PRN for CONGESTION Discontinued Reason: No Longer Taking Prescribed by: QUYNH STINSON on 04/02/19 1723 Last Action: Discontinued Sulfamethoxazole/Trimethoprim (Bactrim Ds Tablet) 1 Each Tablet, 1 EACH PO BID Discontinued Reason: No Longer Taking Prescribed by: URSULA RODRIGUEZ on 01/26/18 1225 Last Action: Discontinued Review of Systems Review of Systems Constitutional: No chills, No diaphoresis, No fever, No malaise, No weakness EENTM: No Double Vision, No Eye Pain Respiratory: Denies Cough, Denies Orthopnea Cardiovascular: Denies Chest Pain Gastrointestinal: Abdominal Pain; Denies Diarrhea; Nausea, Vomiting Genitourinary: Denies Burning, Denies Discharge, Denies Drainage, Denies Frequency Musculoskeletal: No back pain, No joint pain Skin: No change in color All Other Systems Reviewed Negative Unless Noted: Yes Past Qszmhzt-Hrylfh-Yrhald Hx Patient Social History Tobacco Use?: No Substance use?: No Alcohol Use?: Yes Alcohol Frequency: Once in a while Immunizations Up To Date Tetanus Booster (TDap): Unknown PED Vaccines UTD: Yes Seasonal Allergies Seasonal Allergies: No Past Medical History Surgeries: No Respiratory: No Cardiac: No Neurological: No Meningitis Reproductive Disorders: No Genitourinary: No Gastrointestinal: No Musculoskeletal: No Endocrine: No HEENT: No Cancer: No Psychosocial: No Integumentary: No Blood Disorders: No Adverse Reaction/Blood Tranf: No Family Medical History Patient reports no known family medical history. Heart Disease, Cancer Physical Exam Vital Signs Vital Signs - First Documented 04/03/23 17:43 Temp 37.0 Pulse 81 Resp 16 B/P (MAP) 148/89 (108) Pulse Ox 98 O2 Delivery Room Air Capillary Refill : Less Than 3 Seconds Height/Weight/BMI Height: 6'0.50" Weight: 300lbs. 0.0oz. [id number]; 41.00 BMI Method:Stated General Appearance: WD/WN, no apparent distress HEENT: PERRL/EOMI, normal ENT inspection, TMs normal, pharynx normal Neck: non-tender, full range of motion, supple Respiratory: chest non-tender, lungs clear, normal breath sounds Cardiovascular: regular rate, rhythm, no edema, no gallop, no JVD Gastrointestinal: normal bowel sounds, soft, no organomegaly, tenderness (Epigastric tenderness, right upper quadrant tenderness. Normal bowel sound throughout. 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, no motor/sensory deficits, alert, normal mood/affect, oriented x 3 Skin: normal color, warm/dry Progress/Results/Core Measures Results/Orders Lab Results Laboratory Tests Test 04/03/23 17:54 04/03/23 18:00 Range/Units Urine Color YELLOW Urine Clarity CLEAR Urine pH 5.5 5-9 Urine Specific [place] >=1.030 1.016-1.022 Urine Protein NEGATIVE NEGATIVE Urine Glucose (UA) NEGATIVE NEGATIVE Urine Ketones NEGATIVE NEGATIVE Urine Nitrite NEGATIVE NEGATIVE Urine Bilirubin NEGATIVE NEGATIVE Urine Urobilinogen 0.2 < = 1.0 MG/DL Urine Leukocyte Esterase NEGATIVE NEGATIVE Urine RBC (Auto) NEGATIVE NEGATIVE Urine RBC NONE /HPF Urine WBC NONE /HPF Urine Squamous Epithelial Cells NONE /HPF Urine Crystals NONE /LPF Urine Bacteria NEGATIVE /HPF Urine Casts NONE /LPF Urine Mucus NEGATIVE /LPF Urine Culture Indicated NO White Blood Count 13.2 H 4.3-11.0 10^3/uL Red Blood Count 5.46 4.30-5.52 10^6/uL Hemoglobin 16.1 13.3-17.7 g/dL Hematocrit 48 40-54 % Mean Corpuscular Volume 89 80-99 fL Mean Corpuscular Hemoglobin 30 25-34 pg Mean Corpuscular Hemoglobin Concent 33 32-36 g/dL Red Cell Distribution Width 12.6 10.0-14.5 % Platelet Count 336 130-400 10^3/uL Mean Platelet Volume 10.5 9.0-12.2 fL Immature Granulocyte % (Auto) 0 % Neutrophils (%) (Auto) 77 H 42-75 % Lymphocytes (%) (Auto) 17 12-44 % Monocytes (%) (Auto) 5 0-12 % Eosinophils (%) (Auto) 1 0-10 % Basophils (%) (Auto) 1 0-10 % Neutrophils # (Auto) 10.1 H 1.8-7.8 10^3/uL Lymphocytes # (Auto) 2.2 1.0-4.0 10^3/uL Monocytes # (Auto) 0.6 0.0-1.0 10^3/uL Eosinophils # (Auto) 0.1 0.0-0.3 10^3/uL Basophils # (Auto) 0.1 0.0-0.1 10^3/uL Immature Granulocyte # (Auto) 0.1 0.0-0.1 10^3/uL Sodium Level 141 135-145 MMOL/L Potassium Level 4.2 3.6-5.0 MMOL/L Chloride Level 105 98-107 MMOL/L Carbon Dioxide Level 24 21-32 MMOL/L Anion Gap 12 5-14 MMOL/L Blood Urea Nitrogen 7 7-18 MG/DL Creatinine 0.91 0.60-1.30 MG/DL Estimat Glomerular Filtration Rate 118 BUN/Creatinine Ratio 8 Glucose Level 122 H 70-105 MG/DL Calcium Level 9.7 8.5-10.1 MG/DL Corrected Calcium 8.5-10.1 MG/DL Total Bilirubin 1.1 H 0.1-1.0 MG/DL Aspartate Amino Transf (AST/SGOT) 45 H 5-34 U/L Alanine Aminotransferase (ALT/SGPT) 80 H 0-55 U/L Alkaline Phosphatase 81 40-136 U/L Total Protein 8.4 H 6.4-8.2 GM/DL Albumin 4.6 H 3.2-4.5 GM/DL Lipase 37 8-78 U/L My Orders Orders - TIRSO BEAVERS Ua Culture If Indicated (04/03/23 17:50) Cbc With Automated Diff (04/03/23 17:54) Comprehensive Metabolic Panel (04/03/23 17:54) Lipase (04/03/23 17:54) Ns Iv 1000 Ml (Ns Iv 1000 Ml) (04/03/23 17:54) Ondansetron Injection (Ondansetron Inj (04/03/23 18:00) Fentanyl Injection (Fentanyl Injection (04/03/23 17:54) Ct Abdomen/Pelvis W (04/03/23 17:54) Iohexol Injection (Omnipaque 350 Mg/Ml 1 (04/03/23 18:15) Received Contrast (Hold Metformin- Contr (04/03/23 18:15) Ns (Ivpb) 100 Ml (Sodium Chloride 0.9% 1 (04/03/23 18:15) Lidocaine 2% Viscous 15 Ml (Xylocaine Vi (04/03/23 18:45) Antacid Suspension (Antacid Suspension (04/03/23 18:45) Rx-Ondansetron Po (Rx-Zofran Po) (04/03/23 19:45) Medications Given in ED Current Medications Medications Dose Ordered Sig/Fidel Route Start Time Stop Time Status Last Admin Dose Admin Al Hydrox/Mg Hydrox/Simethicone 30 ml ONCE ONCE PO 04/03/23 18:45 04/03/23 18:46 DC 04/03/23 18:49 30 ML Iohexol 100 ml ONCE ONCE IV 04/03/23 18:15 04/03/23 18:16 DC 04/03/23 18:21 100 ML Lidocaine HCl 15 ml ONCE ONCE PO 04/03/23 18:45 04/03/23 18:46 DC 04/03/23 18:48 15 ML Ondansetron HCl 4 mg ONCE ONCE IVP 04/03/23 18:00 04/03/23 18:01 DC 04/03/23 18:11 4 MG Ondansetron HCl 4 mg ONCE ONCE PO 04/03/23 19:45 04/03/23 19:46 DC 04/03/23 19:40 4 MG Sodium Chloride 100 ml ONCE ONCE IV 04/03/23 18:15 04/03/23 18:16 DC 04/03/23 18:21 100 ML Vital Signs/I&O 04/03/23 17:43 Temp 37.0 Pulse 81 Resp 16 B/P (MAP) 148/89 (108) Pulse Ox 98 O2 Delivery Room Air Blood Pressure Mean: 108 Departure Communication (PCP) Patient with upper abdominal pain. This started 2 hours before arrival. Vomited twice. No diarrhea. No chest pain, cough or shortness of breath. Denies history of similar symptoms. No history of previous abdominal surgery. Differential diagnosis, gastritis, peptic ulcer disease, pancreatitis, cholecystitis, cholelithiasis. Patient with no active vomiting. Rates pain at 8 out of 10. CBC, CMP, lipase, urinalysis CT abdomen pelvis was ordered. CBC shows slight elevated at 13.2. Bilirubin 1.1, AST 45, ALT 80. Normal lipase. Due to not having ultrasound CT abdomen pelvis was ordered which was negative for acute abnormality. Hepatic steatosis. No liver abscess. Did receive fentanyl with improvement of pain to about 4 out of 10. Did receive a GI cocktail without much improvement. Attempted to drink and felt a little nauseous. Patient was not eating at the time of the pain. No recent antibiotic use. Denies eating anything differently today or any recent travels. Other etiologies would be biliary dyskinesia, gastritis or peptic ulcer. This does not appear to be surgical at this time. Discussed with patient symptoms and lab work could potentially change in a 24 to 48 hours. I do think further evaluation is needed with further testing such as HIDA scan or even a upper EGD if symptoms worsen. Suggest at this time nausea medication and Pepcid or Protonix if underlying gastritis. Recommend clear liquids for the next 2 or 3 days. Avoid any fatty foods or spicy foods. Provided general surgery outpatient follow-up. If any worsening symptoms such as fever, chills not able to eat or drink or worsening pain return back to ED. Impression Primary Impression: Abdominal pain Disposition: HOME, SELF-CARE Condition: Stable Departure-Patient Inst. Decision time for Depature: 19:24 Referrals: AGUILAR JONES,LOCAL PHYSICIAN (PCP) Primary Care Physician Patient Instructions: Gastritis (DC) Add. Discharge Instructions: Continue monitoring symptoms at home. If any worsening pain, fever, vomiting return back to ED. Recommend GI outpatient follow-up. Avoid any fatty or spicy foods. Clear liquids for the next few days. Recommend consider taking a PPI such as Protonix or Pepcid to help with the upper abdominal pain. Provided a prescription All discharge instructions reviewed with patient and/or family. Voiced understanding. Scripts Ondansetron (Ondansetron Odt) 4 Mg Tab.rapdis 4 MG SL Q4H PRN for NAUSEA/VOMITING, #8 TAB Prov: TIRSO BEAVERS 04/03/23 Pantoprazole Sodium (Protonix) 40 Mg Tablet. 40 MG PO DAILY, #20 TAB Prov: TIRSO BEAVERS 04/03/23 TIRSO BEAVERS Apr 03, 2023 17:58
[2023-04-03] MEDS ORDERED: ONDANSETRON INJECTION 4 MG/2 ML (SDV) IVP ONE (18:00)
[2023-04-03 18:10] LABS: BASOPHILS # (AUTO) 0.1 10^3/uL (0.0-0.1); BASOPHILS % (AUTO) 1 % (0-10); EOSINOPHILS # (AUTO) 0.1 10^3/uL (0.0-0.3); EOSINOPHILS % (AUTO) 1 % (0-10); HEMATOCRIT 48 % (40-54); HEMOGLOBIN 16.1 g/dL (13.3-17.7); LYMPHOCYTES # (AUTO) 2.2 10^3/uL (1.0-4.0); LYMPHOCYTES % (AUTO) 17 % (12-44); MEAN CORPUSCULAR HEMOGLOBIN 30 pg (25-34); MEAN CORPUSCULAR HGB CONC 33 g/dL (32-36); MEAN CORPUSCULAR VOLUME 89 fL (80-99); MEAN PLATELET VOLUME 10.5 fL (9.0-12.2); MONOCYTES # (AUTO) 0.6 10^3/uL (0.0-1.0); MONOCYTES % (AUTO) 5 % (0-12); NEUTROPHILS # (AUTO) 10.1 10^3/uL (1.8-7.8); NEUTROPHILS % (AUTO) 77 % (42-75); PLATELET COUNT 336 10^3/uL (130-400); WHITE BLOOD COUNT 13.2 10^3/uL (4.3-11.0)
[2023-04-03] MEDS ORDERED: IOHEXOL 350 MG/ML 100 ML (OMNIPAQUE 350) VIAL IV ONE (18:15)
[2023-04-03] MEDS ORDERED: NS 100 ML (IVPB) BAG IV ONE (18:15)
[2023-04-03] MEDS ORDERED: HOLD METFORMIN - RECEIVED CONTRAST 20 ML VIAL IV SCH (18:15)
[2023-04-03 18:16] LABS: ALBUMIN 4.6 GM/DL (3.2-4.5)
[2023-04-03 18:17] LABS: CHLORIDE 105 MMOL/L (98-107); POTASSIUM 4.2 MMOL/L (3.6-5.0); SODIUM 141 MMOL/L (135-145)
[2023-04-03 18:18] LABS: CALCIUM 9.7 MG/DL (8.5-10.1)
[2023-04-03 18:19] LABS: GLUCOSE 122 MG/DL (70-105); TOTAL PROTEIN 8.4 GM/DL (6.4-8.2)
[2023-04-03 18:19] LABS: CLARITY,URINE CLEAR; COLOR,URINE YELLOW; GLUCOSE, URINE (UA) NEGATIVE (NEGATIVE); KETONES,URINE NEGATIVE (NEGATIVE); NITRITE,URINE NEGATIVE (NEGATIVE); PH,URINE 5.5 (5-9); PROTEIN,URINE NEGATIVE (NEGATIVE)
[2023-04-03 18:20] LABS: CARBON DIOXIDE 24 MMOL/L (21-32)
[2023-04-03 18:20] LABS: BACTERIA,URINE NEGATIVE /HPF; BILIRUBIN,URINE NEGATIVE (NEGATIVE); LEUKOCYTE ESTERASE ,URINE NEGATIVE (NEGATIVE)
[2023-04-03 18:21] LABS: BILIRUBIN,TOTAL 1.1 MG/DL (0.1-1.0)
[2023-04-03 18:22] LABS: ALKALINE PHOSPHATASE 81 U/L (40-136)
[2023-04-03 18:25] LABS: ALANINE AMINOTRANSFERASE 80 U/L (0-55)
[2023-04-03 18:26] LABS: LIPASE 37 U/L (8-78)
--- NOTE | 2023-04-03 18:39 | Diagnostic Imaging Report ---
EXAMINATION: CT abdomen and pelvis with intravenous contrast. TECHNIQUE: Multiple contiguous axial images were obtained through the abdomen and pelvis after the uneventful administration of intravenous contrast. All CT scans use one or more of the following dose optimizing techniques: automated exposure control, MA and/or KvP adjustment based on patient size and exam type or iterative reconstruction. HISTORY: Upper abdominal pain. Vomiting. COMPARISON: 02/01/2015. FINDINGS: The heart is unremarkable. The included lung bases are clear. There is hepatic steatosis. No focal hepatic lesion. The portal vein is patent. The gallbladder is unremarkable. The spleen, pancreas, adrenal glands and kidneys have a normal appearance. There is early excretion of contrast within the collecting system. This limits evaluation for possible renal calculi. No hydronephrosis. The urinary bladder is unremarkable. There is no pathologically enlarged mesenteric or retroperitoneal adenopathy. The bowel loops are nondilated. The appendix is visualized in the right lower quadrant and has a normal appearance. There is no free fluid or free air. No acute osseous abnormality. There is no free air, loculated collection or adenopathy in the pelvis. IMPRESSION: 1. No acute abnormality in the abdomen or pelvis. No bowel obstruction, free fluid or free air. Normal appendix. 2. Hepatic steatosis. Dictated by: Dictated on workstation # [id number]
[2023-04-03] MEDS ORDERED: LIDOCAINE 2% VISCOUS 15 ML UDC PO ONE (18:45)
[2023-04-03] MEDS ORDERED: ANTACID SUSPENSION 30 ML UDC PO ONE (18:45)
[2023-04-03] MEDS ORDERED: PANT40TA2 PO (19:25)
[2023-04-03] MEDS ORDERED: ONDA4TAB11 SL (19:25)
[2023-04-03 19:35] LABS: BUN/CREATININE RATIO 8; CREATININE SERUM 0.91 MG/DL (0.60-1.30); GFR ESTIMATED 118
[2023-04-03] MEDS ORDERED: RX-ONDANSETRON 4 MG ODT (ZOFRAN) PPK #4 PO ONE (19:45)
== END 2023-04-03 19:45 | disposition home or self-care (01) ==
LOC: EDUNIT# 17:42 → ER 17:44
DX: R10.11 Right upper quadrant pain (principal); R10.13 Epigastric pain; R11.2 Nausea with vomiting, unspecified
CPT/HCPCS: 36415; 74177; 80053; 81000; 83690; 85025